=== PATIENT | female | born 1980 | race Caucasian/White ===

== ENCOUNTER 2024-07-10 15:16 | Outpatient (REF) | payer BC, SELFPAY ==
--- NOTE | ~2024-07-10 | CT_ITS ---
EXAMINATION: CT HEAD WITHOUT CONTRAST CLINICAL INFORMATION: tension headache COMPARISON: None available. TECHNIQUE: Contiguous axial imaging was performed from the skull base to vertex without intravenous administration of contrast. This CT examination was performed using dose optimization techniques as appropriate, variously including the following: *Automated exposure control *Adjustment of mA and/or kV according to patient size (this includes techniques or standardized protocols for targeted exams where dose is matched to indication/reason for exam; i.e. extremities or head) *Use of iterative reconstruction technique DLP: 717 mGy-cm FINDINGS: Bony calvarium is intact. Skull base is intact. No acute intracranial hemorrhage, mass effect, midline shift, hydrocephalus or herniation. Greer-white matter differentiation is normal. Posterior cranial fossa contents are normal. Sellar/suprasellar region demonstrated no gross masses. Craniocervical junction is intact. No air-fluid levels in the included paranasal sinuses. Tympanic cavities and mastoid air cells are aerated. No masses or fluid collections in the intraconal or extraconal compartments of the orbits. CT/CT head/brain wo IV con IMPRESSION: No acute or structural brain abnormality by CT. Electronically signed by: Linden Genao MD 07/14/2024 07:43 AM EST
--- OUTSIDE RECORDS SUMMARY | 2024-07-10 15:18 | XMS_ITS | Clinical Summary ---
Author Organization [facility] [address] [place] [address] Address [address] [place] [address] Phone Care Team Providers Care Assistant Associate Full Professor Name Role Phone Antonino Pack MD Primary Care Pr ovider Medications levonorgestreL (MIRENA) 21 mcg/24 hours (8 yrs) 52 mg IUD 1 Device (1 each total) by intrauterine route. Active metroNIDAZOLE (METROGEL) 0.75 % (37.5mg/5 gram) vaginal gel One applicatorful PV at night x 5 nights 4 Active acetaminophen (TYLENOL) 325 mg capsule Take 1 capsule (325 mg total) by mouth. Active cholecalcifero l (VITAMIN D-3) 50 mcg (2,000 unit) capsuleIndicat ions:Vitamin D deficiency Take 1 capsule (2,000 Units total) by mouth 1 (one) time each day. 90 each 3 4 04/15/20 25 Active ergocalciferol (VITAMIN D-2) 1,250 mcg (50,000 unit) capsule Take 1 capsule (50,000 Units total) by mouth 1 (one) time per week. 12 capsule 4 07/22/19 25 Active Hospital, Clinic, or Other Facility Administered Medication Ordered Dose Route Frequency Start Date End Date Status cyanocobalamin (VITAMIN B-12) injection 1,000 mcgIndications:Vitamin B12 deficiency disease 1000 mcg IM Every 30 days 04/01/2024 09/28/2024 Active Active Problems Problem Noted Date Diagnosed Date Hepatic hemangioma 04/20/2024 Overview (04/20/2024): MRI abdomen (October 2023) : Small 0.8 cm peripheral segment IV enhancing lesion has signal characteristics and enhancement that suggests small hemangioma Assessment & Plan (04/20/2024 1:32 PM EST): Found to have presumed liver hemangioma on MRI abdomen ( Small 0.8 cm peripheral segment IV enhancing lesion has signal characteristics and enhancement that suggests small hemangioma) Lung nodule 04/20/2024 Overview (04/20/2024): 3mm left lung nodule : CT (10/24/23) Due for CT chest in September 2024 Assessment & Plan (04/20/2024 1:32 PM EST): Incidental finding of 3mm left lung nodule noted on CT abdomen ordered by GI(done 10/24/23). 12 month follow up recommended. This will be due in September 2024 Mild depression 04/20/2024 Assessment & Plan (04/20/2024 1:32 PM EST): Has no interest in medications for now. She is able to manage this on her own Vitamin D deficiency 09/13/2022 Assessment & Plan (04/20/2024 1:32 PM EST): Start daily vitamin D Orders: Vitamin D 25 hydroxy; Future cholecalciferol (VITAMIN D-3) 50 mcg (2,000 unit) capsule; Take 1 capsule (2,000 Units total) by mouth 1 (one) time each day. Overweight (BMI 25.0-29.9) 08/13/2022 Palpitation 06/08/2022 Abnormal Holter exam 06/06/2022 Cervical spondylosis 06/05/2022 Overview (07/30/2023): Last Assessment & Plan: Patient is here for her 1 year follow-up s/p C6-7 artificial disc replacement, x-rays 07/08/2023 show good placement of the artificial disc. Patient has done well, she had a slight flareup the Saturday before Super Bowl when she was cleaning the house, woke up with muscle spasm, pinched nerve sensation in the left lateral neck and upper trapezius toward the shoulder blade. She did some stretches at home that she remembered from physical therapy, used her foam roller, Motrin. Things have improved with time. She leaves for [place] next week to visit a friend who works in physical medicine, plans to try her TENS unit. Also plans to go for massage. Mrs. Prieto is doing well s/p C6-7 artificial disc replacement. She can follow-up as needed, at this time she does not feel she needs any physical therapy, but will call if she has another flare up. All questions answered. Chronic night sweats 05/31/2022 Erythrocytosis 05/31/2022 Snoring 05/31/2022 Cervicogenic headache 05/14/2022 Assessment & Plan (04/20/2024 1:32 PM EST): Continue follow up with neurology. Hx is as above Anxiety disorder 01/24/2022 Assessment & Plan (04/20/2024 1:32 PM EST): Has no interest in medications for now. She is able to manage this on her own Vitamin B12 deficiency disease 01/23/2021 Assessment & Plan (04/20/2024 1:32 PM EST): Continue monthly B12 injections Orders: Vitamin B12; Future Cervical disc disease 01/23/2019 Tobacco use disorder 04/12/2017 Overview (07/30/2023): 04/2022 smoking 1/2 PPD, has rx for patch, discussed setting quit date Assessment & Plan (04/20/2024 1:32 PM EST): Smoking cessation counseling provided. She still has the nicotine patches at home and will check to see if they are not . If she needs prescription she will let me know Multiple thyroid nodules 01/10/2017 Assessment & Plan (04/20/2024 1:32 PM EST): Up-to-date with thyroid ultrasound which was stable. Done in November. Orders: Thyroid stimulating hormone with reflex to free t4 and free t3; Future Other specified abnormal findings of blood chemi stry 12/31/2016 Irritable bowel syndrome with diarrhea 7 Hyperlipidemia 05/27/2016 Overview (04/29/2024): Calculated ASCVD risk is 1.7% Assessment & Plan (04/20/2024 1:32 PM EST): Currently not on a statin. Still smoking. Will calculate ASCVD risk with new labs and make recommendations thereafter Orders: Lipid panel with reflex to direct LDL; Future Comprehensive metabolic panel; Future Resolved Problems Problem Noted Date Diagnosed Date Resolved Date Thyroid nodule 09/11/2022 04/20/2024 Atypical chest pain 06/08/2022 04/20/20 24 Low vitamin B12 level 05/31/20222023 Encounters Date Type Department Care Team Description 07/01/2024 1:30 PM EST Clinical Support [address] [phone] Vitamin B12 deficiency disease (Primary Dx) 06/03/2024 10:15 AM EST Clinical Support [address] [phone] Vitamin B12 deficiency disease (Primary Dx) 05/30/2024 11:15 AM EST - 05/30/2024 11:59 PM EST Hospital Encounter Radiology Department [address] [phone] Encounter for screening mammogram for breast cancer Discharge Disposition: Home or Self Care 04/29/2024 10:15 AM EST Clinical Support [address] [phone] Vitamin B12 deficiency disease (Primary Dx) 04/20/2024 12:30 PM EST Office Visit Adult Medicine [address] [phone] Antonino Pack MD Mixed hyperlipidemia (Primary Dx); Vitamin B12 deficiency disease; Vitamin D deficiency; Tobacco use disorder; Multiple thyroid nodules; Need for hepatitis C screening test; Chronic abdominal pain; Cervicogenic headache; Generalized anxiety disorder; Mild depression; Lung nodule; Hepatic hemangioma from Last 3 Months Immunizations Name Administration Dates Next Due DTP 07/11/1987, 4,1982,1982,1982 [id number] (Pentacel) 2mo to less than 5yo 05/10/1985 Hepatitis B Pediatric (Enger ix B; Recombivax HB) to less than 20 yo 08/25/1998,02/24/1998,01/25/1998 Hib (HbOC) 05/10/1985 Influenza Quadravalent, MDCK , 0.5ml, preservative free (Flucelvax) 6mo and older 02/13/2022 Influenza Quadravalent, MDCK , 0.5ml, with preservative (Flucelvax) 6mo and older 04/12/2017 Influenza trivalent, 0.5mL, preservative free (Fluarix; FluLaval; Fluzone) ages 6mo and older (Afluria) 3 years and older 02/16/2016 Influenza trivalent, MDCK, 0 .5mL, preservative free (Flucelvax) 6mo and older 04/20/2024 Influenza trivalent, with preservative (Fluzone; Afluria) 6mo and older 05/24/2020 MMR, measles mumps and rubel la Live (Priorix; M-M-R II) 12mo and older 01/23/1994,07/11/1983 OPV 06/27/1987, 4,1982,1982,1982 Pfizer SARS-CoV-2 COVID-19, mRNA, LNP-S, preservative free 05/25/2021,09/16/2020,08/26/2020 Td Tetanus diptheria (Tdvax) 7yo and older 04/05/2003 Td, Unspecified 04/05/2003 Tdap Tetanus diptheria acell ular pertussis (Boostrix; Adacel) 7yo and older 02/16/2016 Surgical History Surgery Date Site/Laterality Comments CERVICAL BIOPSY W/ LOOP ELECTRODE EXCISION 2009 PROCEDURE: NV CONIZATION CERVIX W/WO D&C RPR ELTRD EXC; COMMENT: HPV+ EYE SURGERY PROCEDURE: HISTORICAL EYE SURGERY NECK SURGERY 04/2019 Right PROCEDURE: HISTORICAL NECK SURGERY; COMMENT: C6-7 foraminotomy and discectomy, Dr. Schwartz OTHER SURGICAL HISTORY 06/28/2022 PROCEDURE: NV TOTAL DISC ARTHRP ANT SINGLE INTERSPACE CERVICAL; COMMENT: C6-7 artificial disc replacement, Dr. Schwartz Medical History Medical History Date Comments Cervical disc herniation 01/23/2019 DX:Cerv ical disc herniation Insomnia DX:Insomnia SURESH (obstructive sleep apnea) DX :SURESH (obstructive sleep apnea) Anxiety and depression DX:Anxiet y and depression Concussion 2018 DX:Concussion Vitamin B12 deficiency DX:Vitami n B12 deficiency Chronic right upper quadrant pain DX:Chronic right upper quadrant pain Thyroid nodule 09/11/2022 Atypical chest pain 06/08/2022 Family History Medical History Relation Name Comments Hypertension Brother Heart attack Father smoker Hypertension Father Colon cancer Maternal Grandfather Other: aortic Mother AAA Prostate cancer Other ? great uncl e Heart attack Paternal Grandfather Hypertension Paternal Grandmother No Known Problems Sister Breast cancer Neg Hx Cancer of Small Bowel Neg Hx Kidney cancer Neg Hx Ovarian cancer Neg Hx Pancreatic cancer Neg Hx Uterine cancer Neg Hx Relation Name Status Comments Brother Alive Father (Age 57) heart dise ase Maternal Grandfather Mother Alive Other Paternal Grandfather (Age 37) he art disease Paternal Grandmother Sister Alive Son 1 Alive Mayank Son 2 Alive Dieudonne Social History Tobacco Use Types Packs/Day Years Used Date Smoking Tobacco: Every Day Cigarettes Smokeless Tobacco: Never Tobacco Cessation:Ready to Q uit: Not Asked; Counseling Given: Not Answered Alcohol Use Standard Drinks/Week Comments Yes 0 (1 standard drink = 0.6 oz pur e alcohol) Housing Instability Answer Date Recorde d Are you worried that in the next 2 months you may not have stable housing? No 04/20/2024 Food Access & Nutrition Answer Date Rec orded Do you have access to a vari ety of food including fruits and vegetables? Yes 04/20/2024 Access to Healthcare Answer Date Record ed Within the last 3 months, ho w many times did you visit the emergency department for your medical care? 0 04/20/2024 Health Literacy Answer Date Recorded How often do you need to hav e someone help you when you read instructions, pamphlets, or other written material from your doctor or pharmacy? Never 04/20/2024 Caregiver: How often do you need to have someone help you when you read instructions, pamphlets, or other written material from your doctor or pharmacy? Not on file 04/20/2024 Financial Risk Answer Date Recorded How hard is it for you to pa y for the very basics like food, housing, medical care, and air conditioning / heating? Not very hard 04/20/2024 Transportation Answer Date Recorded Has the lack of transportati on kept you from meetings, work, or from getting things needed for daily living? No Has the lack of transportati on kept you from medical appointments or from getting medications? No 04/20/2024 Social Isolation Answer Date Recorded How often do you feel lonely or isolated from those around you? Sometimes 04/20/2024 Food Risk Answer Date Recorded Within the past 12 months we worried whether our food would run out before we got money to buy more. Never true 04/20/2024 Within the past 12 months th e food we bought just didn't last and we didn't have money to get more. Never true 04/20/2024 Dependent Care Answer Date Recorded Do you need help finding or paying for care for your loved ones. For example, child care development specialist or elderly care for an older adult? No 04/20/2024 Education Answer Date Recorded Do you think completing more education or training, like finishing a GED, going to college, or learning a trade, would be helpful for you? Patient declined 04/20/2024 Employment and Income Answer Date Recor ded During the last four weeks, have you been actively looking for work? No 04/20/2024 Living Situation Answer Date Recorded What is your living situation? 1 06/20/2023 Comments No Sex and Gender Information Value Date Recorded Sex Assigned at Not on file Legal Sex Female 10:52 PM EST Gender Identity Not on file Sexual Orientation Not on file Obstetrics History Para Term AB IAB SAB Ectopic Multiple Livin g Live Births 2 2 2 2 Date Outcome GA Total Labor Labor/2nd/3rd Weight Sex Type Anes PTL Darlene A1 A5 Name Clin Term Term Last Filed Vital Signs Vital Sign Reading Time Taken Comments Blood Pressure 112/82 04/20/2024 1:00 PM EST Pulse 88 04/20/2024 1:00 PM EST Temperature 37.1 ??C (98.7 ??F) 04/20/2024 1:00 PM ES T Respiratory Rate 17 04/20/2024 1:00 PM EST Oxygen Saturation - - Inhaled Oxygen Concentration - - Weight 66.7 kg (147 lb) 04/20/2024 1:00 PM EST Height 152.4 cm (5') 04/20/2024 1:00 PM EST Body Mass Index 28.71 04/20/2024 1:00 PM EST Plan of Treatment Upcoming Encounters Date Type Department Care Team (Late st Contact Info) Description 07/14/2024 10:20 AM EST Office Visit Gastroenterology - [place] [facility] [address] [facility] [address] [place] [phone] Hunter Lopez PA [address] [facility] [address] [place] [address] 07/29/2024 2:15 PM EST Clinical Support Adult Medicine [address] [phone] 11/11/2024 10:00 AM EDT Office Visit Adult Medicine [address] [phone] Dali Flores PA [address] [place] [address] Health Maintenance Due Date Last Done Comments Hepatitis A Vaccines (1 of 2 - Risk 2-dose series) 2001 Pneumococcal Vaccine: Pediatrics (0 to 5 Years) and At-Risk Patients (6 to 64 Years) (1 of 2 - PCV) 2001 HIV Screening 05/05/2022 COVID-19 Vaccine ( season) 2024 05/25/2021, 09/16/2020, 08/26/2020 Depression Screening 04/20/2025 04/20/2024 Social Influencers of Health Screening 04/20/2025 04/20/2024 DTaP,Tdap,and Td Vaccines (9 - Td or Tdap) 02/15/2026 02/16/2016, 04/05/2003, 04/05/2003, Additional history exists Breast Cancer Screening 05/30/2026 05/30/19, 05/24/2023, 05/16/2022 Cervical Cancer Screening: Pap Smear 07/24/2026 07/25/2023, 10/17/2018 Cholesterol Screening (Lipid Panel) 04/29/2029 04/29/2024 HIB Vaccines Completed 05/10/1985, 05/10/1985 IPV Vaccines Completed 06/27/1987, 04/26, 10/09/1983, Additional history exists MMR Vaccines Completed 01/23/1994, 07/11/1983 Hepatitis B Vaccines Completed 08/25/1998, 02/24/1998, 01/25/1998 Influenza Vaccine Completed 04/20/2024, , 05/24/2020, Additional history exists Hepatitis C Screening Completed 04/29/2024 HPV Vaccines Aged Out No longer eligi ble based on patient's age to complete this topic Meningococcal ACWY Vaccine Aged Out N o longer eligible based on patient's age to complete this topic Meningococcal B Vacine Aged Out No lo nger eligible based on patient's age to complete this topic RSV Immunization Patients Under 20 months Aged Out No longer eligible based on patient's age to complete this topic Varicella Vaccines Aged Out No longer eligible based on patient's age to complete this topic Procedures Procedure Name Priority Date/Time Associated Diagnosis Comments MG MAMMO DIGITAL SCREENING W EDWARDO BILAT Routine 05/30/2024 11:20 AM EST Encounter for screening mammogram for breast cancer LIPID PANEL WITH REFLEX TO DIRECT LDL Routine 04/29/2024 10:07 AM EST Mixed hyperlipidemia HEPATITIS C ANTIBODY Routine 04/29/2024 10:07 AM EST Need for hepatitis C screening test COMPREHENSIVE METABOLIC PANEL Routine 04/29/2024 10:07 AM EST Mixed hyperlipidemia THYROID STIMULATING HORMONE WITH REFLEX TO FREE T4 AND FREE T3 Routine 04/29/2024 10:07 AM EST Multiple thyroid nodules VITAMIN B12 Routine 04/29/2024 10:07 AM EST Vitamin B12 deficiency disease VITAMIN D 25 HYDROXY Routine 04/29/2024 10:07 AM EST Vitamin D deficiency PAP SMEAR Routine 07/25/2023 from Last 3 Months or Most Recently Relevant to Health Maintenance Results * MG Mammo Digital Screening w Edwardo bilat (05/30/2024 11:20 AM EST) Anatomical Region Laterality Modality Breast Bilateral Mammography 06/01/2024 11:4 3 AM EST Impressions 06/01/2024 11:46 AM EST Benign. BI-RADS CATEGORY: 1 - NEGATIVE RECOMMENDATION: Screening bilateral mammogram is recommended in 1 year. Mammo Location: [facility], [address] [place] [address], [id number], . The screening -------- FINAL REPORT -------- Dictated By: Yudelka Linder Dictated Date: 06/01/2024 11:43 ET Assigned Physician: Yudelka Linder Reviewed and Electronically Signed By: Yudelka Linder Signed Date: 06/01/2024 11:46 ET Workstation ID: [id number] Transcribed By: Self Edit Transcribed Date: 06/01/2024 11:43 ET Narrative 06/01/2024 11:46 AM EST CLINICAL: 44 years old, Female, routine annual exam. COMPARISON: Mammograms 05/24/2023 and 05/16/2022. ?? TECHNIQUE: Bilateral MLO and CC views were obtained digitally with 3-D mammogram (digital breast tomosynthesis). Computer-aided detection was utilized in evaluation of this exam (CAD). FINDINGS: There is no evidence of suspicious mass or architectural distortion. ??No worrisome calcifications are evident. ??There has been no significant change from prior exam(s). ?? BREAST DENSITY: D - The breasts are extremely dense which lowers the sensitivity of mammography. Procedure Note Yudelka Linder MD - 06/01/2024 CLINICAL: 44 years old, Female, routine annual exam. COMPARISON: Mammograms 05/24/2023 and 05/16/2022. TECHNIQUE: Bilateral MLO and CC views were obtained digitally with 3-Dmammogram (digital breast tomosynthesis). Computer-aided detection wasutilized in evaluation of this exam (CAD). FINDINGS: There is no evidence of suspicious mass or architectural distortion. Noworrisome calcifications are evident. There has been no significantchange from prior exam(s). BREAST DENSITY: D - The breasts are extremely dense which lowers thesensitivity of mammography. IMPRESSION: Benign. BI-RADS CATEGORY: 1 - NEGATIVE RECOMMENDATION: Screening bilateral mammogram is recommended in 1 year. Mammo Location: [facility], [address] [place] [address], [id number], . The screening -------- FINAL REPORT -------- Dictated By: Yudelka Linder Dictated Date: 06/01/2024 11:43 ET Assigned Physician: Yudelka Linder Reviewed and Electronically Signed By: Yudelka Linder Signed Date: 06/01/2024 11:46 ET Workstation ID: [id number] Transcribed By: Self Edit Transcribed Date: 06/01/2024 11:43 ET Celina Buckley CNM IMG BI PROCEDURES Final Res ult * Hepatitis C antibody (04/29/2024 10:07 AM EST) Hepatitis C Antibody Negative Negative LAB CHEMISTRY METHOD 04/29/2024 1:17 PM EST [facility] Blood Venous blood specimen / Unknown Venipuncture / Unknown 04/29/2024 10:07 AM EST 04/29/2024 10:07 AM EST Antonino Pack MD LAB BLOOD ORDERA BLES Final Result Performing Organization Address [facility]/ZIP Co de Phone Number [facility] [address] [place] [address], [place] [phone] * Thyroid stimulating hormone with reflex to free t4 and free t3 (04/29/2024 10:07 AM EST) Pathologist [facility] TSH 1.51 0.40 - 4.00 mcIU/mL LAB CHEMISTRY METHOD 04/29/2024 12:38 PM [facility] Blood Venous blood specimen / Unknown Venipuncture / Unknown 04/29/2024 10:07 AM EST 04/29/2024 10:07 AM EST Antonino Pack MD LAB BLOOD ORDERA BLES Final Result Performing Organization Address [facility]/ZIP Co de Phone Number [facility] [address] [place] [address], [place] [phone] * (ABNORMAL) Lipid panel with reflex to direct LDL (04/29/2024 10:07 AM EST) Cholesterol 245(H) 0 - 200 mg/dL LAB CHEMISTRY METHOD 04/29/2024 12:54 PM [facility] Triglycerides 93 0 - 150 mg/dL LAB CHEMISTRY METHOD 04/29/2024 12:54 PM [facility] HDL 74 >=40 mg/dL LAB CHEMISTRY METHOD 04/29/2024 12:54 PM [facility] LDL Calculated 152(H) 0 - 100 mg/dL LAB CHEMISTRY METHOD 04/29/2024 12:54 PM [facility] VLDL Cholesterol Nasim 18.6 mg/dL LAB CHEMISTRY METHOD 04/29/2024 12:54 PM [facility] Non HDL Chol. (LDL+VLDL) 171(H) <145 mg/dL LAB CHEMISTRY METHOD 04/29/2024 12:54 PM [facility] Chol/HDL Ratio 3.3 0.0 - 4.4 LAB CHEMISTRY METHOD 04/29/2024 12:54 PM EST [facility] Blood Venous blood specimen / Unknown Venipuncture / Unknown 04/29/2024 10:07 AM EST 04/29/2024 10:07 AM EST Antonino Pack MD LAB BLOOD ORDERA BLES Final Result Performing Organization Address City/[facility]/ZIP Co de Phone Number [facility] [address] [place] [address], [place] [phone] * (ABNORMAL) Vitamin D 25 hydroxy (04/29/2024 10:07 AM EST) Vit D, 25-Hydroxy 5.9(L) 30.0 - 80.0 ng/mL LAB CHEMISTRY METHOD 04/29/2024 12:40 PM [facility] Blood Venous blood specimen / Unknown Venipuncture / Unknown 04/29/2024 10:07 AM EST 04/29/2024 10:07 AM EST Antonino Pack MD LAB BLOOD ORDERA BLES Final Result Performing Organization Address [facility]/ZIP Co de Phone Number [facility] [address] [place] [address], [place] [phone] * Vitamin B12 (04/29/2024 10:07 AM EST) Vitamin B-12 282 250 - 900 pcg/mL LAB CHEMISTRY METHOD 04/29/2024 12:54 PM [facility] Blood Venous blood specimen / Unknown Venipuncture / Unknown 04/29/2024 10:07 AM EST 04/29/2024 10:07 AM EST Antonino Pack MD LAB BLOOD ORDERA BLES Final Result [facility] [address] [place] [address], * Comprehensive metabolic panel (04/29/2024 10:07 AM EST) Sodium 140 133 - 145 mmol/L LAB CHEMISTRY METHOD 04/29/2024 12:54 PM [facility] Potassium 4.3 3.5 - 5.5 mmol/L LAB CHEMISTRY METHOD 04/29/2024 12:54 PM [facility] Chloride 108 96 - 110 mmol/L LAB CHEMISTRY METHOD 04/29/2024 12:54 PM [facility] CO2 26 21 - 32 mmol/L LAB CHEMISTRY METHOD 04/29/2024 12:54 PM [facility] Anion Gap 6 3 - 11 LAB CHEMISTRY METHOD 04/29/2024 12:54 PM [facility] Glucose 88 70 - 100 mg/dL LAB CHEMISTRY METHOD 04/29/2024 12:54 PM [facility] BUN 8 5 - 25 mg/dL LAB CHEMISTRY METHOD 04/29/2024 12:54 PM [facility] Creatinine 0.77 0.50 - 1.10 mg/dL LAB CHEMISTRY METHOD 04/29/2024 12:54 PM [facility] eGFR 99 >=60 mL/min/1. 73m2 LAB CHEMISTRY METHOD 04/29/2024 12:54 PM [facility] Comment:Calculation based on the??Chronic Kidney Disease Epidemiology Collaboration (CKD-EPI) equation refit??without adjustment for race. BUN/Creatinine Ratio 10.4 LAB CHEMISTRY METHOD 04/29/2024 12:54 PM [facility] Calcium 9.6 8.5 - 10.5 mg/dL LAB CHEMISTRY METHOD 04/29/2024 12:54 PM [facility] AST (SGOT) 18 10 - 42 unit/L LAB CHEMISTRY METHOD 04/29/2024 12:54 PM [facility] ALT (SGPT) 23 10 - 60 unit/L LAB CHEMISTRY METHOD 04/29/2024 12:54 PM [facility] Alkaline Phosphatase 65 42 - 121 unit/L LAB CHEMISTRY METHOD 04/29/2024 12:54 PM [facility] Total Protein 6.8 6.0 - 8.0 g/dL LAB CHEMISTRY METHOD 04/29/2024 12:54 PM [facility] Albumin 4.2 3.2 - 5.0 g/dL LAB CHEMISTRY METHOD 04/29/2024 12:54 PM [facility] Total Bilirubin 0.7 0.0 - 1.4 mg/dL LAB CHEMISTRY METHOD 04/29/2024 12:54 PM [facility] Blood Venous blood specimen / Unknown Venipuncture / Unknown 04/29/2024 10:07 AM EST 04/29/2024 10:07 AM EST Antonino Pack MD LAB BLOOD ORDERA BLES Final Result [facility] [address] [place] [address], * Pap smear (07/25/2023) 07/25/2023 Narrative HISTORICAL TESTING LAB RESULTING AGENCY - 08/08/2023 4:26 PM EDT [id number] THINPREP PAP, IMAGED: NEGATIVE FOR SQUAMOUS INTRAEPITHELIAL LESION AND MALIGNANCY . SHIFT IN [place], SUGGESTIVE OF BACTERIAL VAGINOSIS. RADHA RANGEL(ASCP) (CASE ELECTRONICALLY SIGNED 08 08 2023) RESULT OF APTIMA HIGH RISK HPV ASSAY: HIGH RISK HPV: ??NEGATIVE (SEROTYPES 16,18,31,33,35,39,45,51,52,56,58,59,66,68) COMPLETED ON 2023-07-31 ADEQUACY: SATISFACTORY ENDOCERVICAL/TRANSFORMATION ZONE COMPONENT ABSENT. SOURCE: THINPREP PAP HPV ANY DX: ??REFLEX 16 AND 18, CERVICAL, IMAGED CLINICAL INFORMATION: HPV ANY DIAGNOSIS. HORMONES IUD, PAP HX POSITIVE LEEP 2010, [Z01.419] Celina Buckley CN LAB CYTOLOGY ORDERABLES Fin al Result HISTORICAL TESTING LAB RESULTING AGENCY from Last 3 Months or Most Recently Relevant to Health [place] [phone] [facility] Care Teams Assistant Associate Full Professor Relationship Specialty Start Date End Date Antonino Pack MD [address] [place] [address] [id number] PCP - General 02/28/23
--- OUTSIDE RECORDS SUMMARY | 2024-07-10 15:18 | XMS_ITS | Clinical Summary ---
Author Organization [facility] Address [address] [place] [address] Care Team Providers Care Glass Blower Helper Name Role Phone Antonino Pack MD Primary Care Pr ovider Allergies No known active allergies Medications Medication Sig Dispensed Refills Start Date End Date Status busPIRone (BUSPAR) 7.5 MG tablet TAKE ONE TABLET BY MOUTH 2 TIMES A DAY FOR 5 DAYS, THEN TAKE ONE TABLET BY MOUTH 3 TIMES A DAY FOR 90 DAYS 0 01/26/2022 Active cyclobenzaprine (FLEXERIL) 5 MG tablet Take 1 tablet (5 mg total) by mouth every night at bedtime as needed. for muscle spasm 0 01/18/2022 Active dicyclomine (BENTYL) 10 MG capsule TAKE ONE CAPSULE BY MOUTH 4 TIMES A DAY, BEFORE MEALS AND NIGHTLY FOR 180 DAYS 0 02/13/2022 Active metoclopramide (REGLAN) tablet 10 mg TAKE 1 TABLET BY MOUTH TWICE A DAY FOR 14 DAYS 0 01/11/2022 Active escitalopram (LEXAPRO) tablet 10 mg Take 1 tablet (10 mg total) by mouth daily. 0 Active amitriptyline (ELAVIL) tablet 50 mg Take 1 tablet (50 mg total) by mouth every night at bedtime. 0 Active Active Problems Problem Noted Date Diagnosed Date Erythrocytosis 05/31/2022 Snoring 05/31/2022 Tobacco use 05/31/2022 Chronic night sweats 05/31/2022 Low vitamin B12 level 05/31/2022 Family History Medical History Relation Name Comments Heart attack Father Cancer Maternal Grandfather Heart attack Paternal Grandfather Cancer Paternal Grandmother Relation Name Status Comments Father Maternal Grandfather Paternal Grandfather Paternal Grandmother Social History Tobacco Use Types Packs/Day Years Used Date Smoking Tobacco: Never Assessed Sex and Gender Information Value Date Recorded Sex Assigned at Not on file Gender Identity Not on file Sexual Orientation Not on file Job Start Date Occupation Industry Not on file Not on file Not on file Last Filed Vital Signs Vital Sign Reading Time Taken Comments Blood Pressure 135/90 02/28/2023 11:36 AM EDT Pulse 96 02/28/2023 11:36 AM EDT Temperature 37.1 ??C (98.7 ??F) 02/28/2023 1 1:36 AM EDT Respiratory Rate - - Oxygen Saturation 99% 02/28/2023 11: 36 AM EDT Inhaled Oxygen Concentration - - Weight 68.4 kg (150 lb 12.8 oz) 023 11:36 AM EDT Height 152.4 cm (5') 05/31/2022 10:49 AM EST Body Mass Index 29.45 05/31/2022 10:49 AM EST Plan of Treatment Health Maintenance Due Date Last Done Comments Hepatitis C Screening 1982 Depression Screening 1994 Preventative Health Evaluation 2000 Cervical Cancer Screening (Pap Smear) 2003 COVID-19 Vaccine ( season) 2024 05/25/2021, 09/16/2020, 08/26/2020 Influenza Vaccine (#1) 2024 , 05/24/2020, 04/12/2017 DTap / Tdap / Td (7 - Td or Tdap) 02/15/2026 02/16/2016, 04/05/2003, 07/11/1987, Additional history exists Hepatitis B Vaccines Completed 08/25/1998, 02/24/1998, 01/25/1998 Pneumococcal Vaccine Aged Out No long er eligible based on patient's age to complete this topic RSV Ped < 20 months Aged Out No longe r eligible based on patient's age to complete this topic Care Teams Glass Blower Helper Relationship Specialty Start Date End Date Antonino Pack MD [address] [place] [id number] PCP - General 02/28/23
--- OUTSIDE RECORDS SUMMARY | 2024-07-10 15:18 | XMS_ITS | Encounter Summary ---
Author Organization [facility] Address [address] [place] [address] Care Team Providers Care Nuclear Scientist Name Role Phone Antonino Pack MD Primary Care Pr ovider Encounter Details Date Type Department Care Team (Latest Contact Info) Description 07/01/2024 1:30 PM EST Clinical Support Adult Medicine [address] [phone] Vitamin B12 deficiency disease (Primary Dx) Social History Tobacco Use Types Packs/Day Years Used Date Smoking Tobacco: Every Day Cigarettes Smokeless Tobacco: Never Alcohol Use Standard Drinks/Week Comments Yes 0 [...] care for your loved ones. For example, childcare provider or elderly care for an older adult? [...] on file Sexual Orientation Not on file documented as of this encounter Progress Notes * Alida Fang MA - 07/01/2024 1:30 PM EST B12 injection given left deltoid. See medication/immunization tab. Patient to remain 20 minutes. documented in this encounter Plan of Treatment Upcoming Encounters Date Type Department Care Team (Late st Contact Info) Description 07/14/2024 10:20 AM EST Office Visit Gastroenterology - [place] [address] [facility] [address] [place] [address] Hunter Lopez, [place] [address] [facility] [address] [place] [address] 07/29/2024 2:15 PM EST Clinical Support Adult [address] [phone] 11/11/2024 10:00 AM EDT Office Visit Adult [address] [phone] Dali Flores, [place] [address] [place] [address] documented as of this encounter Visit Diagnoses Diagnosis Vitamin B12 deficiency disease- Primary Other B-complex deficiencies documented in this encounter Administered Medications Active Administered Medications - up to 3 most recent administrations Medication Order MAR Action Action Date Dose Rate Site cyanocobalamin (VITAMIN B-12) injection 1,000 mcg 1,000 mcg, intramuscular, Every 30 days, First dose on Sat04/01/24 at 0900, For 6 dosesIndications:Vitamin B12 deficiency disease Given 07/01/2024 1:26 PM EST 1,000 mcg Left Deltoid Given 06/03/2024 10:18 AM EST 1,000 mcg L eft Deltoid Given 04/29/2024 10:07 AM EST 1,000 mcg R ight Deltoid documented in this encounter Additional Health Concerns Assessment Noted Time PHQ-9 Depression Total Score: 8 04/20/20 12:37 PM EST documented as of this encounter Care Teams Nuclear Scientist Relationship Specialty Start Date End Date Antonino Pack MD [address] [place] [id number] PCP - General 02/28/23 documented as of this encounter
== END 2024-07-10 15:17 | disposition home or self-care (01) ==
LOC: HO.CT 15:16
PROVIDERS: PCP Family Medicine; Visit Provider Psychiatry & Neurology Neurology
DX: G44.209 Tension-type headache, unspecified, not intractable (principal)
CPT/HCPCS: 70450

== ENCOUNTER → 2024-07-10 15:18 | Outpatient (BNV) | payer BC, SELFPAY | PROVIDERS: PCP Family Medicine; Visit Provider Radiology Diagnostic Radiology | DX: G44.209 Tension-type headache, unspecified, not intractable (principal) | CPT/HCPCS: 70450 ==